=== PATIENT | male | born 1965 | race Caucasian/White ===

== ENCOUNTER 2023-09-27 23:58 | Observation (INO) | payer OTHER, SELFPAY ==
[2023-09-27] VITALS (9 sets, daily range): BP systolic 114–123; BP diastolic 81–87; BMI 19.5
[2023-09-27 19:49] LABS: % Basophils 0.4 % (0-2); % Eosinophils 0.9 % (0-6); % Immature Granulocytes 0.3 % (0-0.5); % Lymphocytes 20.9 % (20.5-51.1); % Monocytes 7.2 % (1.7-9.3); % Neutrophils 70.3 % (42.2-75.2); Absolute Eosinophils 0.1 10^3/uL (0-0.7); Absolute Lymphocytes 2.2 10^3/uL (1.2-3.4); Absolute Monocytes 0.7 10^3/uL (0.1-0.6); Absolute Neutrophils 7.3 10^3/uL (1.4-6.5); Hemoglobin 15.5 g/dL (13.0-18.0); Mean Corp Hgb Conc. 34.4 g/dL (33.0-37.0); Mean Corpuscular Hgb 30.9 pg (27.0-31.0); Mean Corpuscular Volume 89.6 fL (80.0-94.0); Nucleated Red Blood Cells % 0 % (-); Platelet Count 198 10^3/uL (130-400); Red Blood Cell Count 5.02 10^6/uL (4.70-6.10); Red Cell Dist. Width 13.9 % (11.5-14.5); White Blood Cell Count 10.3 10^3/uL (4.8-10.8)
[2023-09-27 19:59] LABS: APTT 30.5 Sec (23.4-35.0)
--- NOTE | 2023-09-27 20:02 | ED.GENMED ---
History of Present Illness
General
Chief Complaint: Weakness
Time Seen by Provider: 09/27/23 20:02
History of Present Illness
History of Present Illness:
HPI: Around 6:40 PM, the patient started having 'trouble'. He reported left-sided weakness with paresthesias. He also describes some degree of right-sided symptoms as well. He has not had symptoms like this in the past. He feels generally weak.
He also has some generalized pain as well but he cannot clearly tell me where the pain is coming from.
EXAM:
GENERAL: Patient appears in mild distress
HEENT: Moist oral mucosa
CARDIOVASCULAR: No murmurs, normal heart rate, regular rhythm, No chest wall tenderness
PULMONARY: No respiratory distress, breath sounds are clear and equal
ABDOMEN: Soft with no peritoneal signs, no tenderness
NEUROLOGIC: He initially did not seem to attempt to lift the left upper extremity off the stretcher however after I held the left upper extremity in the air, it did not fall initially. It seemed that he then headed back down to the structure. He
seems to have some weakness in both lower extremities equally. There is no definite facial asymmetry. There is no dysarthria. There is no aphasia.
PSYCHIATRIC: Appropriate mental status, normal insight and judgement but somewhat of a bizarre affect at times
EXTREMITIES: Nontender, no edema, inconsistencies with movement of the extremities
SKIN: No rash, no lesions
TIME OF INITIAL ENCOUNTER: 8:10 PM
NUMBER AND COMPLEXITY OF PROBLEMS ADDRESSED AT THE ENCOUNTER
� Chronic conditions affecting care: No significant past medical history
� Acute Exacerbation and/or Progression of Chronic Illness:
� Differential Diagnosis includes: CVA, malingering behavior, hypoglycemia, spinal stenosis
AMOUNT AND/OR COMPLEXITY OF DATA TO BE REVIEWED AND ANALYZED
� I performed an independent evaluation of and my interpretation is:
EKG: Sinus 78, rightward axis deviation, nonspecific ST abnormality, RSR' pattern
CT: CT head shows no acute abnormality. I personally viewed CT of the C-spine and see no acute abnormality
X-rays:
Laboratory Studies: CBC normal, chemistries unremarkable, troponin negative
Other:
� Review of other/old records: The patient had foot x-ray here in 2014
� Clinical information was obtained by an independent historian: I spoke to [facility] officers at bedside
� Prescriptions/Medications Considered but not given:
� Further testing considered but not performed:
RISK OF COMPLICATIONS AND/OR MORBIDITY OR MORTALITY OF PATIENT MANAGEMENT
� Social determinants of health affecting care: The patient resides at [facility]
� Discussion with other providers: I discussed case emergently with on-call neurology, Dr. Mccrary at 8:10 PM. We both agree to hold off on TNK. Hospitalist, Dr. Townsend for admission at 10:51 PM.
� Escalation of care including admission/observation vs risk of discharge considered: The patient has a rather inconsistent neurologic examination. Although he initially reported left-sided weakness, he seems to have varying
weakness in all extremities. I am not sure how much effort he is putting into the motor testing. On reassessment at 10:15 PM, I attempted to have the patient's stand however he could not bear weight and also reported global pain. I had to hold
him up for him to stand. Unclear etiology of patient's symptoms. I discussed again with Dr. Mccrary and he agrees that we should still keep patient in the hospital for further evaluation and recommended adding CT of the C-spine.
Past History
Past History
ED Past Medical History: None
Social History
Tobacco: Smoker
Phy Exam
Physical Exam
Physical Exam:
See HPI
Course
Orders/Labs/Results
Orders:
Orders
09/27/23 19:34
Electrocardiogram (*1) Urgent
Reason for Study: Other
Other Reason for Exam: Possible Stroke
Bedside Glucose- Treatment ONCE
09/27/23 19:35
EKG- Treatment ONCE
09/27/23 19:41
Complete Blood Count/With Diff Urgent
Comprehensive Metabolic Panel Urgent
PTT Urgent
Prothrombin Time Urgent
Troponin I Urgent
09/27/23 20:07
CT Head W/o Iv Contrast Urgent
Comment:
Reason For Exam: L weakness
09/27/23 22:10
CT Cervical Spine W/o Iv Contr Urgent
Comment:
Reason For Exam: unilateral weakness
Abnormal Lab Results
09/27/23
19:41
Absolute Neuts (auto) 7.3 H 10^3/uL
(1.4-6.5)
Absolute Monos (auto) 0.7 H 10^3/uL
(0.1-0.6)
Glucose 106 H mg/dl
(70-99)
09/27/23 19:41
09/27/23 19:41
Vital Signs
Initial and Last Documented VS:
Initial Vital Signs
BP
122/83
09/27/23 19:32
Last Documented Vital Signs
Temp Pulse Resp BP Pulse Ox
98.3 F 91 17 96/68 96
09/28/23 11:00 09/28/23 11:00 09/28/23 11:00 09/28/23 11:00 09/28/23 11:00
*Critical Care Note
Total Time (30-74mins, 75-104mins- exclusive of procedures): Not Applicable
ED Attending Note
-
Portions of this chart may have been created with voice recognition software.� Occasional wrong word or��sound alike� substitutions may have occurred due to the inherent limitations of voice recognition software.
Discharge Plan
Departure
Patient Disposition: Admit
Date of Disposition: 09/27/23
Time of Disposition: 22:52
Presentation/result/management discussed w/ accepting MD/DO: Hospitalist
Discharge Problem:
Weakness
Interventions
Interventions:
*Risk Screen - Suicide Last Done: 09/27/23 19:35
*General Assessment Last Done: 09/27/23 19:35
*Neglect/Abuse Screening Last Done: 09/27/23 19:35
ED- Fall Risk Assessment Last Done: 09/27/23 19:35
*ED COVID-19 Vaccine History Last Done: 09/28/23 00:57
*Nursing Disposition Last Done: 09/28/23 00:57
ED- Cardiac Assessment Last Done: 09/27/23 19:45
ED- Neurological Assessment Last Done: 09/27/23 19:35
ED- Pulmonary Assessment Last Done: 09/27/23 19:45
Discharge Date and Time
Discharge Date/Time: 09/28/23 00:58
[2023-09-27 20:06] LABS: ALT (SGPT) 21 U/L (0-50); AST (SGOT) 31 U/L (17-59); Alkaline Phosphatase 89 U/L (38-126); Blood Urea Nitrogen 20 mg/dl (9-20); Calcium 9.5 mg/dl (8.4-10.2); Carbon Dioxide 28 mmol/L (22-30); Chloride 101 mmol/L (98-107); Estimated Creatinine Clearance 83 ml/min; Glucose 106 mg/dl (70-99); Potassium 4.4 mmol/L (3.5-5.1); Sodium 137 mmol/L (135-145); Total Bilirubin 0.5 mg/dl (0.2-1.3); Total Protein 7.1 g/dl (6.3-8.2); eGFR > 60.00
[2023-09-27 20:13] LABS: Troponin I < 0.012 ng/ml
[2023-09-28] VITALS (9 sets, daily range): BP systolic 96–129; BP diastolic 68–88; BMI 18.6
--- NOTE | 2023-09-28 00:03 | HPS.HSE ---
Addendum entered and electronically signed by Zenia Galaviz MD 09/28/23 00:12:
Patient did endorse history of BPH and difficulty voiding at times. He denied incontinence.
Original Note:
Family Physician
-
Family Physician: [facility]
Chief Complaint
-
weakness
History of Present Illness
58-year-old male with a medical history presenting from intermediate for weakness. Around 6:40 PM he states that he started having left sided weakness with paresthesias. Patient states that he was feeling in his normal health until this evening when he
suddenly developed severe numbness and tingling of the left lower extremity. He states that he is unable to feel his feet at this time. The numbness and tingling comes and goes to different parts of the leg. He also complains of numbness and
tingling in the left upper extremity but this has improved. He complains of severe lower back pain which radiates down his legs. He also complained of upper back pain but this is chronic. He complains of some chest pain earlier but this has
resolved. He also felt dizzy and had a headache earlier.
He does use marijuana sometimes. He smokes 3 cigarettes a day. He denies alcohol or any other drugs.
He has a family history of strokes in his mother and grandmother.
Medical History
Past Medical History
Past Medical History: Reports None
Past Surgical History: Reports None
Social History
Tobacco: Smoker
Alcohol: None
Drug: Marijuana
Family History
Family History: Other (He has a family history of strokes in his mother and grandmother.)
Allergies / Home Medications
Allergies reflects when Allergies were last updated in [facility].
Home Medications with original date entered in [facility]
Allergy/Medication List:
Allergies
Allergy/AdvReac Type Severity Reaction Status Date / Time
No Known Allergies Allergy Verified 09/27/23 19:35
Home Medications
therapeutic multivitamin 1 tab PO DAILY 09/27/23
Review of Systems
-
History Source: Patient
A 12 point ROS was completed and negative except as noted: Yes
Physical Exam
Vital Signs
Vital Signs
Temp Pulse Resp BP Pulse Ox
98.2 F 74 8 115/83 96
09/27/23 19:35 09/27/23 23:00 09/27/23 23:00 09/27/23 22:00 09/27/23 23:00
Physical Exam
General: Well Developed, Well Nourished and No Apparent Distress
HEENT: NormoCephalic, Moist mucous membranes and Atraumatic
Respiratory: Clear
Cardiac: S1/S2 and Regular Rhythm; No Murmur or Rub
GI: Soft, Non Tender, Non Distended and Normal Bowel Sounds; No Organomegaly
Rectal: Deferred by Provider
Musculoskeletal: No Clubbing, No Cyanosis and No Edema
Skin: No Rash
Neuro: Nonfocal/grossly intact
Laboratory Results
-
09/27/23 19:41
09/27/23 19:41
Laboratory Results
PT 13.0 Sec (11.4-14.6) 09/27/23 19:41
INR 1.00 09/27/23 19:41
APTT 30.5 Sec (23.4-35.0) 09/27/23 19:41
Total Bilirubin 0.5 mg/dl (0.2-1.3) 09/27/23 19:41
AST 31 U/L (17-59) 09/27/23 19:41
ALT 21 U/L (0-50) 09/27/23 19:41
Alkaline Phosphatase 89 U/L (38-126) 09/27/23 19:41
Troponin I < 0.012 ng/ml 09/27/23 19:41
Data Reviewed
-
Lab Data: Labs Reviewed by me
Old Records: Reviewed
Impression/Plan
-
IMPRESSION:
PLAN:
# Left-sided upper and lower extremity weakness, lower back pain
-Initially he could not lift the left upper extremity off the stretcher however when the left upper extremity was held up it did not fall initially, and now he can move the left upper extremity without any restrictions
-Was reportedly able to walk as per EMS however patient cannot bear weight and stand due to numbness of left leg
-He cannot move the left lower extremity however there is good muscle tone, pulses intact
-Neurology decided to hold off on TNK
-CT cervical spine shows degenerative changes
-suspect malingering
-hold off further lumbar imaging for now
-Neurology consulted
#Chronic upper back pain
-tylenol
# Smoker
-Smoke 3 cigarettes
# Marijuana user
Full code
DVT prophylaxis�SCDs
Regular diet
--- NOTE | 2023-09-28 01:15 | PTCARENOTE ---
pt arrived to floor via stretcher and was transferred over to bed. Ambulation with assist of 2 was attempted upon arrival, pt reported lower back pain and left foot numbness with impaired gait, however once on the scale he was able to stand up
straight for weight. pt then appeared to once again have trouble ambulating on his way back to bed with assist x 2. Pt reported 10/10 pain during admission questions. Reached out to HOME HEALTH ADMINISTRATOR who advised to start pt with tylenol for pain control and
reassess after. However, the pt was asleep when rounding back to patient, no medication needed at that time. Pt appeared to be resting comfortably throughout the rest of the night.
[2023-09-28 06:58] LABS: % Basophils 0.5 % (0-2); % Eosinophils 1.1 % (0-6); % Immature Granulocytes 0.3 % (0-0.5); % Lymphocytes 18.9 % (20.5-51.1); % Monocytes 7.9 % (1.7-9.3); % Neutrophils 71.3 % (42.2-75.2); Absolute Eosinophils 0.1 10^3/uL (0-0.7); Absolute Lymphocytes 1.7 10^3/uL (1.2-3.4); Absolute Monocytes 0.7 10^3/uL (0.1-0.6); Absolute Neutrophils 6.3 10^3/uL (1.4-6.5); Hematocrit 47.2 % (39.0-52.0); Hemoglobin 16.1 g/dL (13.0-18.0); Mean Corp Hgb Conc. 34.1 g/dL (33.0-37.0); Mean Corpuscular Hgb 31.2 pg (27.0-31.0); Mean Corpuscular Volume 91.5 fL (80.0-94.0); Mean Platelet Volume 8.6 fL (7.4-10.4); Nucleated Red Blood Cells % 0 % (-); Platelet Count 299 10^3/uL (130-400); Red Blood Cell Count 5.16 10^6/uL (4.70-6.10); Red Cell Dist. Width 13.7 % (11.5-14.5); White Blood Cell Count 8.8 10^3/uL (4.8-10.8)
[2023-09-28 07:21] LABS: ALT (SGPT) 21 U/L (0-50); AST (SGOT) 31 U/L (17-59); Albumin 3.9 g/dl (3.5-5.0); Alkaline Phosphatase 90 U/L (38-126); Blood Urea Nitrogen 18 mg/dl (9-20); Calcium 9.2 mg/dl (8.4-10.2); Carbon Dioxide 25 mmol/L (22-30); Chloride 104 mmol/L (98-107); Estimated Creatinine Clearance 90 ml/min; Glucose 92 mg/dl (70-99); Potassium 4.5 mmol/L (3.5-5.1); Sodium 138 mmol/L (135-145); Total Bilirubin 0.6 mg/dl (0.2-1.3); Total Protein 7.3 g/dl (6.3-8.2); eGFR > 60.00
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
[2023-09-28 10:45] LABS: TSH Reflex To Free T4 3.68 uIU/ml (0.47-4.68)
[2023-09-28 11:21] LABS: Folate 12.6 ng/ml (2.76-20); Vitamin B12 452 pg/ml (239-931)
[2023-09-28 13:40] LABS: Amphetamines Positive (Negative); Barbiturates Negative (Negative); Benzodiazepines Negative (Negative); Buprenorphine Negative (Negative); Cocaine Negative (Negative); Marijuana Positive (Negative); Methadone Negative (Negative); Methamphetamines Positive (Negative); Opiates Negative (Negative); Phencyclidine Negative (Negative); Tricyclic Antidepressants Negative (Negative)
[2023-09-28 13:58] LABS: Fentanyl, Urine Negative (Negative)
[2023-09-28] MEDS: TYLENOL 650 MG PO (19:23)
[2023-09-29] VITALS (7 sets, daily range): BP systolic 107–125; BP diastolic 69–79; PULSE 92
[2023-09-29 06:45] LABS: Hematocrit 45.3 % (39.0-52.0); Hemoglobin 15.5 g/dL (13.0-18.0); Mean Corp Hgb Conc. 34.2 g/dL (33.0-37.0); Mean Corpuscular Hgb 31.3 pg (27.0-31.0); Mean Corpuscular Volume 91.3 fL (80.0-94.0); Mean Platelet Volume 8.5 fL (7.4-10.4); Platelet Count 265 10^3/uL (130-400); Red Blood Cell Count 4.96 10^6/uL (4.70-6.10); Red Cell Dist. Width 13.7 % (11.5-14.5)
[2023-09-29 07:12] LABS: Blood Urea Nitrogen 21 mg/dl (9-20); Calcium 9.1 mg/dl (8.4-10.2); Carbon Dioxide 26 mmol/L (22-30); Chloride 102 mmol/L (98-107); Estimated Creatinine Clearance 79 ml/min; Glucose 94 mg/dl (70-99); Potassium 4.3 mmol/L (3.5-5.1); Sodium 134 mmol/L (135-145); eGFR > 60.00
--- NOTE | 2023-09-29 08:53 | CON.NEURO4 ---
Consultation - Neurology 4
-
CONSULTING PHYSICIAN: Jorge Mccrary MD
REFERRING PHYSICIAN: Hospitalist
DICTATED BY: Jorge Mccrary MD
DATE/TIME OF REQUEST: 09/27/2023
DATE/TIME OF CONSULTATION: 09/28/2023
Reason for Consultation: Leg weakness
History of Present Illness:
This is a 58 year old right handed male who has presented to the hospital with complaint of leg weakness and back pain. Pat while incarcerated states he started to have neck and back pain and felt weak and tingling in his legs. Patient states that
he was in his normal health until Saturday evening when he suddenly developed severe numbness and tingling of the left lower extremity. He states that he is unable to feel his feet at this time. The numbness and tingling in his lower leg varies in
intensity. He also complains of numbness and tingling in the left upper extremity but this has improved. He complains of severe upper and lower back pain which radiates down his legs. He also complained of upper back pain but this is chronic. He
complains of some chest pain earlier but this has resolved. He also felt dizzy and had a headache earlier. He also has difficulty emptying his bladder
He does use marijuana sometimes. He smokes 3 cigarettes a day. He denies alcohol or any recreational drugs
Past Medical History: None
Surgical History: None
Family History: [place]
Social History: Currently incarcerated
Allergies: None
Home Medications: None
Review of Symptoms:
Patient denies any fever, headache, chest pain, shortness of breath, GI or symptoms.
�Per the HPI.�All systems are reviewed negative except above.
�
Vital Signs:
The patient has a blood pressure of (96/68) , heart rate (91) , temperature (36.8 ) , respiratory rate (17 ) and a pulse ox of (96) on
(room air / oxygen by nasal cannula / ventilator).
Physical Exam:
The patient is afebrile, heart sounds S1 and S2 are (regular / irregular), and chest is clear to auscultation bilaterally.
Neurologic Examination:
The patient is awake, alert and oriented x 3. He is able to follow commands and answer questions appropriately. There is no aphasia or dysarthria. On cranial nerve assessment, pupils are 3 mm bilateral, round and reactive to light and
accommodation. Visual roque are full. Extraocular movements are intact. Facial sensations are intact and bilaterally symmetrical, there is no facial asymmetry. Hearing is intact bilaterally to normal conversation volume. Tongue palate and uvula
are midline. Sternocleidomastoid strengths are full bilaterally.
Motor strengths are 4/5 bilateral upper extremities and 3/5 lower extremities on medical research [place] scale. Foot drop(L)
There is no drift or involuntary movement noted. Deep tendon reflexes are + bilateral upper and lower extremities and Babinski is absent bilaterally.
Sensations of pain, touch, temperature and vibration are impaired and there is a T2-T4 sensory level.
Coordination is intact by finger to nose bilaterally. Romberg's and Gait cannot be tested as pat is bedbound
Lab Results:
Neuro Imaging:
Impression:
Mr. KEVIN RENAE is a 58 year old M who has presented to the hospital with weakness in his legs and back pain secondary to myelopathy.
Recommendations:
1. MRI Cervical Spine
2. PT/OT
3. Bedrest
4. EMG/NCS OP
Discussed patient care with: Hospitalist
Vital Signs and Labs
-
Vital Signs and Labs:
Vital Signs
Temp Pulse Resp BP Pulse Ox
36.7 C 78 17 113/73 96
09/29/23 07:00 09/29/23 07:00 09/29/23 07:00 09/29/23 07:00 09/29/23 07:00
Lab Results
09/29/23 06:25
09/29/23 06:25
PT 13.0 Sec (11.4-14.6) 09/27/23 19:41
INR 1.00 09/27/23 19:41
APTT 30.5 Sec (23.4-35.0) 09/27/23 19:41
Sodium 134 mmol/L (135-145) L 09/29/23 06:25
Potassium 4.3 mmol/L (3.5-5.1) 09/29/23 06:25
BUN 21 mg/dl (9-20) H 09/29/23 06:25
Glucose 94 mg/dl (70-99) 09/29/23 06:25
Calcium 9.1 mg/dl (8.4-10.2) 09/29/23 06:25
Vitamin B12 452 pg/ml (239-931) 09/28/23 06:33
Ur Buprenorphine Negative (Negative) 09/28/23 13:11
--- NOTE | 2023-09-29 10:34 | W.PN.HOSP.TC ---
Today's Communication/Plan
-
PT/OT eval
await further neuro recommendation if any
possible discharge today
Assessment / Plan
Assessment / Plan
1. Left leg weakness and numbness
Episodic left arm numbness
-left arm/hand sensation change episodic and ongoing for over a year
-left leg feeling weak and also numb upto midtibia level
-CT c spine showing some generative changes
-MRI L abd C spine did not show any major cord compression issue. awati official report for MRI c spine.
-MRI brain cancelled by tech?, neurologist on board and will be need reordering if recommended by neuro.
-B12/folate/TSH normal
-Meth use related neuropathy? patient emphatically denies using meth.
-PT/OT evaluation ordered .
2. Polysubstance use
-Methamphetamine and marijuana positive
-patient denies of using meth
DVTPPX - scd
Full code
Anticipated Discharge: Within 24 hours
Subjective/Interval History
-
Date of Service: September 29, 2023
continues to have some weakness/numbness in LLE
no new issues
Objective Data
-
Labs:
Laboratory Results
09/29/23
06:25
WBC 10.0
Hgb 15.5
Hct 45.3
Plt Count 265
Sodium 134 L
Potassium 4.3
Chloride 102
Carbon Dioxide 26
BUN 21 H
Creatinine 0.8
Glucose 94
Calcium 9.1
Vital Signs:
Vital Signs
Temp Pulse Resp BP Pulse Ox
98.0 F 78 17 113/73 96
09/29/23 07:00 09/29/23 07:00 09/29/23 07:00 09/29/23 07:00 09/29/23 07:00
I&O
09/28/23 09/29/23 09/30/23
06:59 06:59 06:59
Intake Total 0 / 0 1080 / 1080
Output Total 425 / 425 1100 / 1100
Balance -425 / -425 -20 / -20
Review of Systems
-
Respiratory: Reports No Symptoms
Cardiac: Reports No Symptoms
Abdomen/GI: Reports No Symptoms
Physical Exam
-
General: No Apparent Distress and Comfortable
HEENT: Negative Oxygen
Respiratory: Clear to Auscultation
Cardiac: Regular Rhythm and S1/S2; Negative Murmur or Rub
GI: Soft, Nontender, Nondistended and Normal Bowel Sounds
Musculoskeletal: No Edema
Neuro: Awake, Alert, Oriented, Nonfocal/Grossly Intact and Other (Motor power 4/5 in LLE with numbness upto mid tibial level)
Psych: Calm
[2023-09-29] MEDS: TYLENOL 650 MG PO (11:43)
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
--- NOTE | 2023-09-29 15:31 | PTCARENOTE ---
at 1523, patient's pain still 8/10 in lower back. notified Dr. Sow requesting ?Toradol for pain control. at 1531, Dr. Sow placed electronic order for Toradol PRN (see new orders), will continue to monitor.
--- NOTE | 2023-09-29 15:43 | CM ---
[facility], # For report when ready for d/c. [phone] and fax# [phone].
Plan: Case management will continue to follow and assist with discharge planning. Back to group home when stable.
[2023-09-29] MEDS: TORADOL 15 MG IV ×2 (16:27→22:55)
--- NOTE | 2023-09-29 18:13 | PTCARENOTE ---
patient reports pain 4/10 after Toradol, will continue to monitor.
[2023-09-30] VITALS (7 sets, daily range): BP systolic 110–133; BP diastolic 68–77; PULSE 54–73; O2SAT 99–100
[2023-09-30 07:31] LABS: Hematocrit 46.6 % (39.0-52.0); Hemoglobin 15.5 g/dL (13.0-18.0); Mean Corp Hgb Conc. 33.3 g/dL (33.0-37.0); Mean Corpuscular Hgb 30.3 pg (27.0-31.0); Mean Corpuscular Volume 91.2 fL (80.0-94.0); Mean Platelet Volume 8.3 fL (7.4-10.4); Platelet Count 232 10^3/uL (130-400); Red Blood Cell Count 5.11 10^6/uL (4.70-6.10); Red Cell Dist. Width 13.5 % (11.5-14.5); White Blood Cell Count 10.2 10^3/uL (4.8-10.8)
[2023-09-30 08:18] LABS: Blood Urea Nitrogen 24 mg/dl (9-20); Carbon Dioxide 28 mmol/L (22-30); Chloride 102 mmol/L (98-107); Estimated Creatinine Clearance 79 ml/min; Glucose 85 mg/dl (70-99); Potassium 4.5 mmol/L (3.5-5.1); Sodium 137 mmol/L (135-145); eGFR > 60.00
--- NOTE | 2023-09-30 09:55 | W.PN.NEURO.1 ---
Today's Communication / Plan
-
As planned, check MRI of brain. If normal, would not perform additional testing
Continue as needed ketorolac
Will continue to follow pending results.
Neuro Assessment/Plan
Assessment
IMPRESSIONS/RECOMMENDATIONS:
Abrupt change in general discomfort and bilateral lower extremity subjective weakness not demonstrated on examination today
Undoubtedly due to malingering
Plan
As planned, check MRI of brain. If normal, would not perform additional testing
Continue as needed ketorolac
Will continue to follow pending results.
Subjective/Objective
Subjective Data
Date of Service: September 30, 2023
Mild improvement of symptoms specifically discomfort.
Objective Data
Vital Signs
Temp Pulse Resp BP Pulse Ox
36.5 C 82 18 114/77 96
09/30/23 07:00 09/30/23 07:00 09/30/23 07:00 09/30/23 07:00 09/30/23 07:00
Lab Results
09/30/23 07:23
09/30/23 07:23
PT 13.0 Sec (11.4-14.6) 09/27/23 19:41
INR 1.00 09/27/23 19:41
APTT 30.5 Sec (23.4-35.0) 09/27/23 19:41
Sodium 137 mmol/L (135-145) 09/30/23 07:23
Potassium 4.5 mmol/L (3.5-5.1) 09/30/23 07:23
BUN 24 mg/dl (9-20) H 09/30/23 07:23
Glucose 85 mg/dl (70-99) 09/30/23 07:23
Calcium 9.0 mg/dl (8.4-10.2) 09/30/23 07:23
Vitamin B12 452 pg/ml (239-931) 09/28/23 06:33
Ur Buprenorphine Negative (Negative) 09/28/23 13:11
Patient Allergies
No Known Allergies Allergy (Verified 09/27/23 19:35)
Review of Systems
-
History Source: Patient
All other systems: Reviewed and negative
EENT: Swallowing Difficulty
Respiratory: Negative Trouble Breathing
Cardiac: Negative Chest Pain
Abdomen/GI: Negative Incontinence of Stool
Genitourinary: Difficulty Voiding
Neuro: Negative Dizzy or Headache
Physical Exam
-
General: No Apparent Distress and Appears Stated Age
Eyes: Round OU, [place] Conjunctivae and No Ptosis
HEENT: Anicteric and Moist Mucous Membranes
Neck: Full Range of Motion
Respiratory: No Dyspnea
Cardiac: No JVD
GI: Non-distended
Skin: Unremarkable
Extremities: No Clubbing, No Cyanosis and No Edema
Psych: Negative Intact Judgement/Insight
Extended Neurological Exam
Mood & Affect: Mood Unremarkable and Affect Unremarkable
Attention Span & Concentration: Awake, Alert, Interactive and No Difficulty with 2 Step Request
Memory: Unremarkable
Tremor: Hand Tremor Absent and Head Tremor Absent
Speech: Quality Unremarkable and Quantity Unremarkable
Cranial Nerve II: Left Eye: Pupillary Size Unremarkable and Visual Kelley Grossly Intact
Cranial Nerve II: Right Eye: Pupillary Size Unremarkable and Visual Kelley Grossly Intact
Cranial Nerves III, IV, : Extraocular Movement: Grossly Intact
Cranial Nerve VII: Facial Symmetry: Normal Facial Symmetry
Cranial Nerve VIII: Hearing: Unremarkable Hearing to Normal Conversational Volume
Cranial Nerve XI: Shoulder Shrug: Unremarkable
Cranial Nerve XII: Tongue Protusion: Midline
Muscle Strength, Overall: Full Throughout and Other (Positive West sign bilaterally)
Muscle Bulk & Tone: Bulk Unremarkable and Tone Unremarkable
Pronator Drift: No Drift in Upper Extremities
Deep Tendon Reflexes: Trace Throughout
Vibration Sensation: Reduced Mildly Distally
Touch Sensation: Unremarkable
Coordination: [id number] Testing Unremarkable
Babinski Sign: Absent Bilaterally
Data Reviewed
-
MRI Cervical Spine: Report Reviewed
MRI Lumbar Spine: Report Reviewed
Labs: Report Reviewed
Reviewed with: Physician, Nurse Practioner and Patient
Old Records: Summarized
Past History
Past History
ED Past Medical History: None
Social History
Tobacco: Smoker
Drug: Other
Living: long-term
Medications
-
Medications:
Generic Name Dose Route Start Last Admin
Trade Name Freq PRN Reason Stop Dose Admin
Acetaminophen 650 mg 09/28/23 01:54 09/29/23 11:43
Acetaminophen 325 Mg Tablet PO 10/26/23 01:53 650 mg
Q4HPRN PRN Administration
mild pain/COTA/temp> 100.4F
Ketorolac Tromethamine 15 mg 09/29/23 15:31 09/29/23 22:55
Ketorolac 15 Mg/Ml Injection IV 10/04/23 15:30 15 mg
Q6HPRN PRN Administration
sev pain
--- NOTE | 2023-09-30 12:21 | W.PN.HOSP.TC ---
Addendum entered and electronically signed by Vickey Cali MD 09/30/23 16:34:
Patient did not do well with physical therapy. Check x-ray for now. Hold discharge
Addendum entered and electronically signed by Vickey Cali MD 09/30/23 15:55:
Time of discharge 36 minutes
Addendum entered and electronically signed by Vickey Cali MD 09/30/23 15:53:
Spoke with neurology, MRI without any acute findings. Discharged back to shelter today if does okay with PT
Original Note:
Today's Communication/Plan
-
Monitor vital signs see plan
PT/OT
Neurology following
If does well with PT and if neurology is okay then will likely discharge today
Assessment / Plan
Assessment / Plan
Left leg weakness and numbness
Episodic left arm numbness
-left arm/hand sensation change episodic and ongoing for over a year
-left leg feeling weak and also numb upto midtibia level
-CT c spine showing some generative changes
-MRI L abd C spine did not show any major cord compression issue. Monitor moderate multilevel degenerative changes of the lumbar spine with mild to moderate neural foraminal stenosis throughout the mid to lower lumbar spine
MRI brain with evidence of acute infarct. Small foci of white matter signal alteration likely in the basis of mild chronic microangiopathic ischemia. Less likely it appears demyelination.
JUANPABLO noted, does not suggest any focal significant stenosis.
-B12/folate/TSH normal
-Meth use related neuropathy? patient emphatically denies using meth.
-PT/OT evaluation ordered .
Polysubstance use
-Methamphetamine and marijuana positive
-patient denies of using meth
DVTPPX - scd
Full code
pt/ot
ST
General: No Apparent Distress and Comfortable
HEENT: Negative Oxygen
Respiratory: Clear to Auscultation
Cardiac: Regular Rhythm and S1/S2; Negative Murmur or Rub
GI: Soft, Nontender, Nondistended and Normal Bowel Sounds
Musculoskeletal: No Edema
Neuro: Awake, Alert, Oriented, Nonfocal/Grossly Intact and Other (Motor power 4/5 in LLE with numbness upto mid tibial level)
Psych: Calm
Anticipated Discharge: Within 24 hours
Subjective/Interval History
-
Date of Service: September 30, 2023
denies pain
Objective Data
-
Labs:
Laboratory Results
09/30/23
07:23
WBC 10.2
Hgb 15.5
Hct 46.6
Plt Count 232
Sodium 137
Potassium 4.5
Chloride 102
Carbon Dioxide 28
BUN 24 H
Creatinine 0.8
Glucose 85
Calcium 9.0
Vital Signs:
Vital Signs
Temp Pulse Resp BP Pulse Ox
98.2 F 83 18 110/68 99
09/30/23 12:00 09/30/23 12:00 09/30/23 12:00 09/30/23 12:00 09/30/23 12:00
I&O
09/29/23 09/30/23 10/01/23
06:59 06:59 06:59
Intake Total 1080 / 1080 1200 / 1200
Output Total 1100 / 1100 825 / 825
Balance -20 / -20 375 / 375
--- NOTE | 2023-09-30 15:22 | CM ---
Alert awake oriented patient who is a prisoner at [facility]. Guards are with pt.Spoke with Xander ALVARADO at [facility] aware of possible return to custodial today. He is independent in activities of daily living.
Pharmacy CPS
PCP DR Conde
PLAN Return to [facility]
report [phone]

Please send hard copy also.f
--- NOTE | 2023-09-30 15:52 | W.DCSUMMARY ---
Discharge Summary
Discharge Data
Date of Admission: 09/27/23
Date of Discharge: 10/01/23
-
Pending Results: No
Hospital Course
58-year-old male with past medical history of polysubstance use came to the hospital from alf with left lower extremity weakness and numbness along with episodic left arm numbness. Patient was seen by neurology throughout hospitalization.
Patient had extensive imaging with CT scan and MRI which showed possible moderate multilevel degenerative changes of the lumbar spine with mild to moderate neural foraminal stenosis. There was no fracture on imaging. MRI of the brain was also done
which was negative for any acute infarct. Patient was also seen by physical therapy who initially recommended SNF however prior to discharge recommended home health. X-ray of the lower extremity was also done which showed osteoarthritis however
there was no fracture. Over time patient symptoms continue to get better. Since his symptoms were improving and he was stable from neurological standpoint, he was then discharged with instructions to follow-up outpatient.
Discharge Plan
-
Patient Disposition: Usp
Discharge Diagnosis/Procedures: Left leg weakness and numbness
Multiple degenerative changes of lumbar spine
Osteoarthritis
Polysubstance use
Diet: As tolerated
Activity: As tolerated
Driving Restrictions: As prior to admission
Bathing Restrictions: None
Referrals:
[facility] [Family Provider] - in less than 1 week
Prescriptions:
New
acetaminophen 325 mg Tablet
650 mg PO Q4HPRN PRN (Reason: mild pain/COTA/temp> 100.4F) Qty: 0 0RF
Continued
therapeutic multivitamin Tablet
1 tab PO DAILY
Discharge Orders:
Discharge Patient (As Directed); Ordered 10/01/23
Ordered By: Vickey Cali
Discharge Date and Time
Discharge Date/Time: 10/01/23 13:27
Print Language: SAMI
--- NOTE | 2023-09-30 16:19 | PTOTSP ---
SPEECH THERAPY SWALLOW EVALUATION:
Patient exhibits oropharyngeal swallow function grossly within functional limits at this time. No signs or symptoms of aspiration noted at this time. Patient with no predisposing or precipitating dysphagia risk factors. Patient endorsed dysphagia
symptoms including coughing with oral intake, though these symptoms were not evident during evaluation. Patient with no current CXR; WBC WNL. Afebrile. Breathing comfortably on room air. Given these indications, patient appears safe to continue
Regular texture diet, thin liquids at this time. Medications whole with liquid as best tolerated. General aspiration precautions. Education provided to patient regarding aspiration risks/precautions. Skilled ST services are not indicated at this
time. Please re-consult should continued signs of aspiration or dysphagia occur. ST to sign off at this time. Informal assessment of speech/language/cognitive communication skills appeared to be WFL at this time; Formal speech/language/cognitive
communication evaluation is not indicated at this time. Discussed recommendations with Dr. Cali.
RECOMMEND:
1) Regular texture diet, thin liquids
2) Medications whole with liquid as best tolerated
3) General aspiration precautions
4) ST to sign off
[2023-09-30] MEDS: TORADOL 15 MG IV (21:17)
[2023-10-01 06:22] LABS: Hematocrit 42.2 % (39.0-52.0); Hemoglobin 14.7 g/dL (13.0-18.0); Mean Corp Hgb Conc. 34.8 g/dL (33.0-37.0); Mean Corpuscular Hgb 31.3 pg (27.0-31.0); Mean Corpuscular Volume 89.8 fL (80.0-94.0); Mean Platelet Volume 9.2 fL (7.4-10.4); Platelet Count 239 10^3/uL (130-400); Red Cell Dist. Width 13.4 % (11.5-14.5); White Blood Cell Count 8.3 10^3/uL (4.8-10.8)
[2023-10-01 06:56] LABS: Blood Urea Nitrogen 23 mg/dl (9-20); Calcium 8.8 mg/dl (8.4-10.2); Carbon Dioxide 26 mmol/L (22-30); Chloride 103 mmol/L (98-107); Estimated Creatinine Clearance 79 ml/min; Glucose 82 mg/dl (70-99); Potassium 4.5 mmol/L (3.5-5.1); Sodium 136 mmol/L (135-145); eGFR > 60.00
[2023-10-01 07:00] VITALS: BP 123/73
--- NOTE | 2023-10-01 07:30 | W.PN.NEURO.1 ---
Today's Communication / Plan
-
.
Neuro Assessment/Plan
Assessment
IMPRESSIONS/RECOMMENDATIONS:
Abrupt change in general discomfort and bilateral lower extremity subjective weakness not demonstrated on examination today
Undoubtedly due to malingering
Plan
Continue as needed ketorolac
Will follow as needed.
Subjective/Objective
Subjective Data
Date of Service: October 01, 2023
Objective Data
Vital Signs
Temp Pulse Resp BP Pulse Ox
36.8 C 71 18 118/70 97
09/30/23 23:00 09/30/23 23:00 09/30/23 23:00 09/30/23 23:00 09/30/23 23:00
Lab Results
10/01/23 05:18
10/01/23 05:18
PT 13.0 Sec (11.4-14.6) 09/27/23 19:41
INR 1.00 09/27/23 19:41
APTT 30.5 Sec (23.4-35.0) 09/27/23 19:41
Sodium 136 mmol/L (135-145) 10/01/23 05:18
Potassium 4.5 mmol/L (3.5-5.1) 10/01/23 05:18
BUN 23 mg/dl (9-20) H 10/01/23 05:18
Glucose 82 mg/dl (70-99) 10/01/23 05:18
Calcium 8.8 mg/dl (8.4-10.2) 10/01/23 05:18
Vitamin B12 452 pg/ml (239-931) 09/28/23 06:33
Ur Buprenorphine Negative (Negative) 09/28/23 13:11
Patient Allergies
No Known Allergies Allergy (Verified 09/27/23 19:35)
Data Reviewed
-
MRI Head: Report Reviewed
Past History
Past History
ED Past Medical History: None
Social History
Tobacco: Smoker
Drug: Other
Living: long term
Family History
Family History: Other (reviewed and non-contributory)
Medications
-
Medications:
Generic Name Dose Route Start Last Admin
Trade Name Freq PRN Reason Stop Dose Admin
Acetaminophen 650 mg 09/28/23 01:54 09/29/23 11:43
Acetaminophen 325 Mg Tablet PO 10/26/23 01:53 650 mg
Q4HPRN PRN Administration
mild pain/COTA/temp> 100.4F
Ketorolac Tromethamine 15 mg 09/29/23 15:31 09/30/23 21:17
Ketorolac 15 Mg/Ml Injection IV 10/04/23 15:30 15 mg
Q6HPRN PRN Administration
sev pain
[2023-10-01] MEDS: MIRALAX 17 GRAMS PO (08:56)
[2023-10-01] MEDS: COLACE 100 MG PO (08:56)
--- NOTE | 2023-10-01 11:06 | W.PN.HOSP.TC ---
Addendum entered and electronically signed by Vickey Cali MD 10/01/23 12:18:
PT OT now recommending home health. Will discharge patient back to nursing home
Time of discharge 36 minutes
Original Note:
Today's Communication/Plan
-
Monitor vital signs and see plan
DC today if PT clears
Assessment / Plan
Assessment / Plan
Left leg weakness and numbness
Episodic left arm numbness
-left arm/hand sensation change episodic and ongoing for over a year
-left leg feeling weak and also numb upto midtibia level
-CT c spine showing some generative changes
-MRI L abd C spine did not show any major cord compression issue. Monitor moderate multilevel degenerative changes of the lumbar spine with mild to moderate neural foraminal stenosis throughout the mid to lower lumbar spine
MRI brain with evidence of acute infarct. Small foci of white matter signal alteration likely in the basis of mild chronic microangiopathic ischemia. Less likely it appears demyelination.
JUANPABLO noted, does not suggest any focal significant stenosis.
-B12/folate/TSH normal
-Meth use related neuropathy? patient emphatically denies using meth.
-PT/OT evaluation ordered; now saying SNF; spoke with PT and they will evaluate him again today. Wonder if patient is malingering. x-ray with some osteoarthritis however no fracture.
Polysubstance use
-Methamphetamine and marijuana positive
-patient denies of using meth
DVTPPX - scd
Full code
pt/ot
ST
General: No Apparent Distress and Comfortable
HEENT: Negative Oxygen
Respiratory: Clear to Auscultation
Cardiac: Regular Rhythm and S1/S2; Negative Murmur or Rub
GI: Soft, Nontender, Nondistended and Normal Bowel Sounds
Musculoskeletal: No Edema
Neuro: Awake, Alert, Oriented, Nonfocal/Grossly Intact and Other (Motor power 4/5 in LLE with numbness upto mid tibial level)
Psych: Calm
Anticipated Discharge: Today
Subjective/Interval History
-
Date of Service: October 01, 2023
denies pain
Objective Data
-
Labs:
Laboratory Results
10/01/23
05:18
WBC 8.3
Hgb 14.7
Hct 42.2
Plt Count 239
Sodium 136
Potassium 4.5
Chloride 103
Carbon Dioxide 26
BUN 23 H
Creatinine 0.8
Glucose 82
Calcium 8.8
Vital Signs:
Vital Signs
Temp Pulse Resp BP Pulse Ox
97.6 F 74 18 123/73 99
10/01/23 07:00 10/01/23 07:00 10/01/23 07:00 10/01/23 07:00 10/01/23 07:00
I&O
09/30/23 10/01/23 10/02/23
06:59 06:59 06:59
Intake Total 1200 / 1200 480 / 480
Output Total 825 / 825 300 / 300
Balance 375 / 375 180 / 180
--- NOTE | 2023-10-01 12:41 | CM ---
Pt is a prisoner at [facility]. Guards are with pt.
Spoke with Nelsy ALVARADO at [facility] PT eval from yesterday and updated PT from today faxed to [facility] .
RN to call report.Guards to return pt to [facility]
PLAN Return to [facility]
report [phone]

Please send hard copy also.f
[2023-10-01 13:02] VITALS: BP 125/71
== END 2023-10-01 13:27 ==
LOC: 3 WEST ACU 23:58
PROVIDERS: Emergency Medicine; Hospitalist; ADMITTING PHYSICIAN Hospitalist; ATTENDING PHYSICIAN Internal Medicine; EMERGENCY PHYSICIAN Emergency Medicine; OTHER PHYSICIAN Psychiatry & Neurology Neurology
DX: R53.1 Weakness (principal); R20.2 Paresthesia of skin; M21.372 Foot drop, left foot; M16.0 Bilateral primary osteoarthritis of hip; M51.36 Other intervertebral disc degeneration, lumbar region; M51.37 Other intervertebral disc degeneration, lumbosacral region; M47.812 Spondylosis without myelopathy or radiculopathy, cervical region; M19.072 Primary osteoarthritis, left ankle and foot; M17.12 Unilateral primary osteoarthritis, left knee; F19.90 Other psychoactive substance use, unspecified, uncomplicated; N40.1 Benign prostatic hyperplasia with lower urinary tract symptoms; R20.0 Anesthesia of skin; R42 Dizziness and giddiness; R51.9 Headache, unspecified; F17.210 Nicotine dependence, cigarettes, uncomplicated; Z76.5 Malingerer [conscious simulation]; Z82.3 Family history of stroke
CPT/HCPCS: 70450; 70553; 72125; 72141; 72148; 73502; 73590; 80048; 80053; 80306; 80307; 82607; 82746; 84443; 84484; 85025; 85027; 85610; 85730; 87070; 92610; 93005; 93922; 93925; 97110; 97116; 97163; 97167; 97530; 99285; A9575